=== PATIENT | female | born 1975 | race Asian ===

== ENCOUNTER 2018-10-26 14:06 | Emergency (ER) | payer OTHER ==
[~2018-10-26] VITALS: Ht 149.9 cm; Wt 65.5 kg
[2018-10-26] MEDS ORDERED: METF-960 PO (14:15)
[2018-10-26] MEDS ORDERED: ACET-2247 PO (14:15)
[2018-10-26] MEDS ORDERED: SODIUM CHLORIDE 0.9% 1,000 ML IV ONE ×2 (14:20→18:45)
[2018-10-26 14:21] LABS: GLUCOSE,POINT OF CARE 502 MG/DL (70-110)
[2018-10-26] MEDS ORDERED: INSULIN REGULAR, HUMAN 100 UNITS/ML IVP ONE (14:30)
[2018-10-26 14:51] LABS: BASOPHILS % (AUTO) 0.4 % (0.0-2.0); HEMATOCRIT 41.3 % (36-46); HEMOGLOBIN 12.6 g/dL (12.0-16.0); LYMPHOCYTES # (AUTO) 2.2 K/uL (1.0-4.8); LYMPHOCYTES % (AUTO) 26.8 % (22.0-44.0); MEAN CORPUSCULAR HEMOGLOBIN 21.8 pg (26.0-34.0); MEAN CORPUSCULAR HGB CONC 30.6 G/dL (31.0-37.0); MEAN CORPUSCULAR VOLUME 71 fL (80-100); MONOCYTES # (AUTO) 0.7 K/uL (0.1-1.0); MONOCYTES % (AUTO) 8.8 % (2.0-9.0); NEUTROPHILS # (AUTO) 5.2 K/uL (1.8-7.7); PLATELET COUNT (AUTO) 266 K/uL (150-450); RED BLOOD CELL COUNT(AUTO) 5.81 MIL/uL (4.00-5.20); RED CELL DISTRIBUTION WIDTH 13.9 % (11.5-14.5)
[2018-10-26 15:15] LABS: ALANINE AMINOTRANSFERASE 13 U/L (12-78); ALBUMIN 2.6 g/dL (3.4-5.0); ALKALINE PHOSPHATASE 142 U/L (46-116); ANION GAP 10 mmol/L (8-16); ASPARTATE AMINOTRANSFERASE 9 U/L (15-37); BILIRUBIN,TOTAL 0.3 mg/dL (0.1-1.0); CALCIUM, TOTAL 9.4 mg/dL (8.8-10.5); CARBON DIOXIDE 23 mmol/L (22-29); CHLORIDE 95 mmol/L (98-107); CREATININE 1.32 mg/dL (0.60-1.30); GLOMERULAR FILTR. RATE CALC 44 mL/min (>60); HCG,QUANTITATIVE < 1 mIU/mL (0-6); LIPASE 131 U/L (73-393); POTASSIUM 3.9 mmol/L (3.5-5.1); SODIUM SERUM 128 mmol/L (136-145); TOTAL PROTEIN, SERUM 7.2 g/dL (6.4-8.2); UREA NITROGEN, BLOOD 24 mg/dL (7-18)
[2018-10-26] MEDS ORDERED: MORPHINE SULFATE 4 MG/ML SYRINGE IVP ONE (15:15)
[2018-10-26] MEDS ORDERED: ONDANSETRON HCL 4 MG/2 ML VIAL IVP ONE (15:15)
[2018-10-26 15:36] LABS: GLUCOSE,RANDOM 587 mg/dL (70-110)
[2018-10-26 15:45] LABS: APPEARANCE,URINE CLEAR (CLEAR); BILIRUBIN,URINE NEGATIVE (NEGATIVE); GLUCOSE, URINE (UA) >=1000 mg/dL (NEGATIVE); KETONES,URINE NEGATIVE (NEGATIVE); LEUKOCYTE ESTERASE ,URINE NEGATIVE (NEGATIVE); NITRATE,URINE NEGATIVE (NEGATIVE); OCCULT BLOOD,URINE SMALL (NEGATIVE); PH,URINE 6.5 (5.0-8.0); PROTEIN,URINE SEE CONFIRM (NEGATIVE); UROBILINOGEN,URINE 0.2 mg/dL (<=1.0)
[2018-10-26 15:53] LABS: SULFOSALICYLIC ACID,URINE 4+ (Negative)
[2018-10-26 15:56] LABS: GLUCOSE,POINT OF CARE 555 MG/DL (70-110)
[2018-10-26 16:01] LABS: BACTERIA,URINE Few /HPF (None Seen); YEAST,URINE Rare /HPF (None Seen)
[2018-10-26 16:03] LABS: SQUAMOUS EPITHELIAL CELL,UR Few /LPF (None Seen)
[2018-10-26] MEDS ORDERED: CefTRIAXone 1 GM/DEXTROSE 50 ML IV ONE (18:30)
[2018-10-26 18:41] LABS: GLUCOSE,POINT OF CARE 320 MG/DL (70-110)
[2018-10-26 18:41] LABS: GLUCOSE,POINT OF CARE 294 MG/DL (70-110)
[2018-10-26] MEDS ORDERED: PHENAZOPYRIDINE HCL 100 MG TABLET PO ONE (18:45)
[2018-10-26] MEDS ORDERED: HYDROCODONE/ACETAMINOPHEN 5-325 MG TABLET PO ONE (18:45)
[2018-10-26 20:26] LABS: GLUCOSE,POINT OF CARE 294 MG/DL (70-110)
[2018-10-26] MEDS ORDERED: MetFORMIN HCL 500 MG TABLET PO ONE (20:30)
[2018-10-26] MEDS ORDERED: TraMADol HCL 50 MG TABLET PO ONE (21:00)
[2018-10-26 21:01] VITALS: BP 164/91
== END 2018-10-26 21:07 | disposition home or self-care (01) ==
LOC: EMS 14:08
DX: N39.0 Urinary tract infection, site not specified (principal); B37.3 Candidiasis of vulva and vagina; E11.65 Type 2 diabetes mellitus with hyperglycemia; Z79.84 Long term (current) use of oral hypoglycemic drugs
CPT/HCPCS: 36415; 74176; 76856; 80053; 81001; 82962; 83690; 83880; 84702; 85025; 87086; 96361; 96365; 96375; 99284; J0696; J1815; J2270; J2405; J7030

== ENCOUNTER 2020-03-11 12:25 | Emergency (ER) | payer OTHER ==
[~2020-03-11] VITALS: Ht 160 cm; Wt 63.6 kg
[~2020-03-11 12:25] MED LIST: ACET-2865 PO; METF-960 PO
[2020-03-11 12:51] LABS: GLUCOSE,POINT OF CARE 292 MG/DL (70-110)
[2020-03-11 14:16] VITALS: BP 155/95
== END 2020-03-11 14:24 | disposition home or self-care (01) ==
LOC: EMS 12:35
DX: S33.5XXA Sprain of ligaments of lumbar spine, initial encounter (principal); E11.9 Type 2 diabetes mellitus without complications; Z79.84 Long term (current) use of oral hypoglycemic drugs; X58.XXXA Exposure to other specified factors, initial encounter; Y93.89 Activity, other specified; Y92.89 Other specified places as the place of occurrence of the external cause; Y99.8 Other external cause status
CPT/HCPCS: 72070; 72100; 99284

== ENCOUNTER 2022-09-01 09:39 | Emergency (ER) | payer OTHER ==
[~2022-09-01] VITALS: Ht 162.6 cm; Wt 68.2 kg
[~2022-09-01 09:39] MED LIST changes: +ACET-2247 PO; -ACET-2865 PO; +METF-1211 PO; -METF-960 PO
[2022-09-01] MEDS ORDERED: LISI-892 PO (09:45)
[2022-09-01] MEDS ORDERED: INSLAN SQ ×2 (09:45)
[2022-09-01] MEDS ORDERED: ASPI-1450 PO (09:45)
[2022-09-01] MEDS ORDERED: HYDR25TA2 PO (09:45)
[2022-09-01 09:47] VITALS: BP 158/93; PULSE 90; RESP 18; TEMP 97.9
[2022-09-01] MEDS ORDERED: DOXY-171 PO (10:39)
== END 2022-09-01 10:53 | disposition home or self-care (01) ==
LOC: EMS 09:39
DX: J34.0 Abscess, furuncle and carbuncle of nose (principal); E11.9 Type 2 diabetes mellitus without complications; Z98.890 Other specified postprocedural states
CPT/HCPCS: 99283; Z7502